=== PATIENT | male | born 1965 | race Hispanic/Latino ===

== ENCOUNTER 2024-12-04 08:29 | Outpatient (CLI) | payer BC | END 2024-12-04 08:30 | disposition home or self-care (01) | LOC: CSHCT 08:29 | PROVIDERS: ATTEND Physician Assistant Medical | DX: R10.32 Left lower quadrant pain (principal); J36 Peritonsillar abscess; Z91.041 Radiographic dye allergy status; K92.0 Hematemesis; K22.10 Ulcer of esophagus without bleeding | CPT/HCPCS: 74176 ==